=== PATIENT | female | born 1955 | race Caucasian/White ===

== ENCOUNTER 2021-03-12 15:09 | Outpatient (CLI) | payer MEDICARE, OTHER | END 2021-03-12 15:10 | disposition home or self-care (01) | LOC: NAV RAD 15:09 | PROVIDERS: ATTEND Family Medicine | DX: M25.461 Effusion, right knee (principal); M25.571 Pain in right ankle and joints of right foot; S82.61XA Displaced fracture of lateral malleolus of right fibula, initial encounter for closed fracture; S82.51XA Displaced fracture of medial malleolus of right tibia, initial encounter for closed fracture ==

== ENCOUNTER 2021-03-12 16:14 | Emergency (ER) | payer MEDICARE, OTHER | END 2021-03-12 17:05 | disposition home or self-care (01) | LOC: NAV ERS 16:14 | DX: S82.841A Displaced bimalleolar fracture of right lower leg, initial encounter for closed fracture (principal); I10 Essential (primary) hypertension; Z79.899 Other long term (current) drug therapy; Z79.82 Long term (current) use of aspirin; W19.XXXA Unspecified fall, initial encounter | CPT/HCPCS: 29515 ==

== ENCOUNTER 2022-01-28 09:22 | Inpatient (IN) | payer MEDICARE, OTHER ==
[2022-01-28] MEDS ORDERED: traMADol HCl 50 MG TAB PO PRN (17:38)
[2022-01-28] MEDS ORDERED: Polyethylene Glycol 3350 17 GM Packet PO PRN (17:38)
[2022-01-28] MEDS ORDERED: guaiFENesin ER 600 MG TAB PO PRN (17:38)
[2022-01-28] MEDS ORDERED: Benzonatate 100 MG CAP PO PRN (17:38)
[2022-01-28] MEDS ORDERED: Loperamide HCl 2 MG CAP PO PRN ×2 (17:46)
[2022-01-28] MEDS ORDERED: hydrOXYzine 25 MG TAB PO PRN (17:46)
[2022-01-28] MEDS ORDERED: Senokot S 8.6-50 MG TAB PO PRN (17:46)
[2022-01-28] MEDS ORDERED: Guaifenesin DM 100-10/5 ML UDCUP PO PRN (17:46)
[2022-01-28] MEDS ORDERED: Ondansetron PF 4 MG/2 ML Vial IVP PRN (17:46)
[2022-01-28] MEDS ORDERED: Bisacodyl 5 MG TAB PO PRN (17:46)
[2022-01-28] MEDS ORDERED: Bisacodyl 10 MG SUPP PR PRN (17:46)
[2022-01-28] MEDS ORDERED: Artificial Tear Sol 15 ML BOT EA EYE PRN (17:46)
[2022-01-28] MEDS ORDERED: Acetaminophen 650 MG Suppository PR PRN (17:46)
[2022-01-28] MEDS ORDERED: Promethazine HCl 25 MG SUPP PR PRN (17:46)
[2022-01-28] MEDS ORDERED: Ondansetron ODT 4 MG TAB PO PRN (17:46)
[2022-01-28] MEDS ORDERED: Acetaminophen 325 MG TAB PO PRN (17:46)
[2022-01-28] MEDS ORDERED: Cepastat Lozenges 1 LOZ PO PRN (17:46)
[2022-01-28 20:37] LABS: SARS-CoV-2 NAA Rapid Test Not Detected (NotDetected)
[2022-01-28] MEDS: Bupropion 150 MG XL TAB PO SCH (20:47)
[2022-01-28] MEDS: Baclofen 10 MG TAB PO SCH (20:47)
[2022-01-28] MEDS: Atorvastatin Calcium 40 MG TAB PO SCH (20:48)
[2022-01-28] MEDS: Montelukast Sodium 10 mg Tablet PO SCH (20:48)
[2022-01-28] MEDS: Escitalopram Oxalate 20 mg Tablet PO SCH (20:54)
[2022-01-28] MEDS: Ventolin HFA Inhaler 60 PUFF INHALER INH SCH (21:25)
[2022-01-29 06:11] LABS: #Basophils 0.1 thou/uL (0.0-0.2); #Eosinphils 0.2 thou/uL (0.0-0.7); #Lymphocytes 3.3 thou/uL (1.20-3.40); #Monocytes 0.9 thou/uL (0.11-0.59); #Neutrophils 5.5 thou/uL (1.40-6.50); %Basophils 0.6 % (0.0-1.0); %Eosinophils 2.1 % (0.0-10.0); %Lymphocytes 33.2 % (21.0-51.0); %Monocytes 8.9 % (0.0-10.0); %Neutrophils 55.2 % (42.0-75.0); Hemoglobin 10.5 g/dL (12.0-16.0); Mean Corpuscular HGB CONC 31.5 g/dL (32.0-36.0); Mean Corpuscular Hemoglobin 31.4 pg (27.0-31.0); Mean Corpuscular Volume 99.8 fL (78.0-98.0); Mean Platelet Volume 9.2 fL (7.4-10.4); Platelet Count 193 thou/uL (130-400); RBC Distribution Width 12.1 % (11.5-14.5); Red Blood Cell (RBC) Count 3.35 mill/uL (4.20-5.40)
[2022-01-29 06:17] LABS: ALT (SGPT) 161 U/L (8-55); AST (SGOT) 155 U/L (5-34); Albumin 3.3 g/dL (3.4-4.8); Alkaline Phosphatase 105 U/L (40-110); Anion Gap 13 mmol/L (10-20); BUN (Urea Nitrogen) 20 mg/dL (9.8-20.1); Bilirubin, Total 0.4 mg/dL (0.2-1.2); Calc. Creatinine Clearance 57 mL/min (70-130); Calcium 8.8 mg/dL (7.8-10.44); Carbon Dioxide 24 mmol/L (23-31); Chloride 108 mmol/L (98-107); Globulin 3.3 g/dL (2.4-3.5); Glucose 84 mg/dL (80-115); Potassium 4.2 mmol/L (3.5-5.1); Protein, Total 6.6 g/dL (5.8-8.1); Sodium 141 mmol/L (136-145)
[2022-01-29] MEDS ORDERED: Ventolin HFA Inhaler 60 PUFF INHALER ONE (08:30)
[2022-01-29] MEDS: Baclofen 10 MG TAB PO SCH ×3 (08:37→20:10)
[2022-01-29] MEDS: Loratadine 10 MG TAB PO SCH (08:38)
[2022-01-29] MEDS: Sodium Chloride 0.65% Nasal 44 ML BOT EA NARE PRN ×2 (08:40→20:18)
[2022-01-29] MEDS: Ventolin HFA Inhaler 60 PUFF INHALER INH SCH ×2 (08:50→20:12)
[2022-01-29] MEDS ORDERED: Non-Formulary Item 1 EACH (Rabeprazole Sodium [Rabeprazole Sodium] 20 MG Tablet.Dr) PO SCH (09:00)
[2022-01-29] MEDS ORDERED: CETIRIZINE HCL 10 MG PO SCH (09:00)
[2022-01-29] MEDS: Montelukast Sodium 10 mg Tablet PO SCH (20:09)
[2022-01-29] MEDS: Escitalopram Oxalate 20 mg Tablet PO SCH (20:10)
[2022-01-29] MEDS: Bupropion 150 MG XL TAB PO SCH (20:10)
[2022-01-29] MEDS: Atorvastatin Calcium 40 MG TAB PO SCH (20:11)
[2022-01-30] MEDS ORDERED: Acetaminophen 650 MG Suppository PR PRN (07:02)
[2022-01-30] MEDS: Loratadine 10 MG TAB PO SCH (09:24)
[2022-01-30] MEDS: Polyethylene Glycol 3350 17 GM Packet PO SCH (09:24)
[2022-01-30] MEDS: Baclofen 10 MG TAB PO SCH ×3 (09:24→20:04)
[2022-01-30] MEDS: Ondansetron ODT 4 MG TAB SL SCH ×2 (09:25→20:05)
[2022-01-30] MEDS: Sodium Chloride 0.65% Nasal 44 ML BOT EA NARE PRN ×2 (09:25→20:05)
[2022-01-30] MEDS: Ventolin HFA Inhaler 60 PUFF INHALER INH SCH ×2 (09:25→20:06)
[2022-01-30] MEDS: Acetaminophen 325 MG TAB PO PRN (14:10)
[2022-01-30] MEDS: traMADol HCl 50 MG TAB PO PRN (15:44)
[2022-01-30] MEDS: Escitalopram Oxalate 20 mg Tablet PO SCH (20:04)
[2022-01-30] MEDS: Bupropion 150 MG XL TAB PO SCH (20:04)
[2022-01-30] MEDS: Atorvastatin Calcium 40 MG TAB PO SCH (20:04)
[2022-01-30] MEDS: Montelukast Sodium 10 mg Tablet PO SCH (20:05)
[2022-01-31] MEDS: traMADol HCl 50 MG TAB PO PRN ×2 (00:52→14:46)
[2022-01-31] MEDS: Loratadine 10 MG TAB PO SCH (08:11)
[2022-01-31] MEDS: Ondansetron ODT 4 MG TAB SL SCH ×2 (08:11→20:36)
[2022-01-31] MEDS: Ventolin HFA Inhaler 60 PUFF INHALER INH SCH ×2 (08:12→20:36)
[2022-01-31] MEDS: Polyethylene Glycol 3350 17 GM Packet PO SCH (08:12)
[2022-01-31] MEDS: Baclofen 10 MG TAB PO SCH ×3 (08:12→20:36)
[2022-01-31] MEDS: Acetaminophen 325 MG TAB PO PRN ×2 (08:13→20:28)
[2022-01-31] MEDS: Sodium Chloride 0.65% Nasal 44 ML BOT EA NARE PRN ×2 (08:28→20:35)
[2022-01-31 17:25] LABS: HBSAg Index 0.14 S/CO (0-0.99); Hep B Core Total Ab Non-Reactive (NonReactive); Hep B Core Total Index 0.13 S/CO (0-0.79); Hep B Surf Ag Non-Reactive S/CO (NonReactive); Hep C IgG Ab Non-Reactive (NonReactive)
[2022-01-31 17:29] LABS: HBSAB Concentration 165.22 mIU/mL; Hep B Surf AB Reactive (NonReactive)
[2022-01-31] MEDS: Bupropion 150 MG XL TAB PO SCH (20:35)
[2022-01-31] MEDS: Montelukast Sodium 10 mg Tablet PO SCH (20:36)
[2022-01-31] MEDS: Escitalopram Oxalate 20 mg Tablet PO SCH (20:36)
[2022-01-31] MEDS: Atorvastatin Calcium 40 MG TAB PO SCH (20:36)
[2022-02-01] MEDS: traMADol HCl 50 MG TAB PO PRN ×3 (01:47→20:51)
[2022-02-01] MEDS: Acetaminophen 325 MG TAB PO PRN ×2 (03:29→16:12)
[2022-02-01] MEDS: Polyethylene Glycol 3350 17 GM Packet PO SCH (07:50)
[2022-02-01] MEDS: Baclofen 10 MG TAB PO SCH ×3 (07:51→20:52)
[2022-02-01] MEDS: Loratadine 10 MG TAB PO SCH (07:52)
[2022-02-01] MEDS: Ondansetron ODT 4 MG TAB SL SCH ×2 (07:52→20:53)
[2022-02-01] MEDS: Ventolin HFA Inhaler 60 PUFF INHALER INH SCH ×2 (08:41→20:54)
[2022-02-01] MEDS: Sodium Chloride 0.65% Nasal 44 ML BOT EA NARE PRN ×2 (08:42→20:53)
[2022-02-01] MEDS: Atorvastatin Calcium 40 MG TAB PO SCH (20:52)
[2022-02-01] MEDS: Bupropion 150 MG XL TAB PO SCH (20:52)
[2022-02-01] MEDS: Escitalopram Oxalate 20 mg Tablet PO SCH (20:53)
[2022-02-01] MEDS: Montelukast Sodium 10 mg Tablet PO SCH (20:53)
[2022-02-02] MEDS: traMADol HCl 50 MG TAB PO PRN ×3 (03:53→20:20)
[2022-02-02] MEDS: Baclofen 10 MG TAB PO SCH ×3 (08:17→20:19)
[2022-02-02] MEDS: Ondansetron ODT 4 MG TAB SL SCH ×2 (08:17→20:20)
[2022-02-02] MEDS: Loratadine 10 MG TAB PO SCH (08:17)
[2022-02-02] MEDS: Ventolin HFA Inhaler 60 PUFF INHALER INH SCH ×2 (08:18→20:21)
[2022-02-02] MEDS: Polyethylene Glycol 3350 17 GM Packet PO SCH (08:19)
[2022-02-02 12:03] LABS: ALT (SGPT) 182 U/L (8-55); AST (SGOT) 152 U/L (5-34); Albumin 4.1 g/dL (3.4-4.8); Alkaline Phosphatase 133 U/L (40-110); Anion Gap 18 mmol/L (10-20); BUN (Urea Nitrogen) 22 mg/dL (9.8-20.1); Bilirubin, Total 0.4 mg/dL (0.2-1.2); Calc. Creatinine Clearance 50 mL/min (70-130); Calcium 9.8 mg/dL (7.8-10.44); Carbon Dioxide 25 mmol/L (23-31); Chloride 103 mmol/L (98-107); Globulin 4.2 g/dL (2.4-3.5); Glucose 91 mg/dL (80-115); Protein, Total 8.3 g/dL (5.8-8.1); Sodium 142 mmol/L (136-145)
[2022-02-02] MEDS: Acetaminophen 325 MG TAB PO PRN (15:06)
[2022-02-02] MEDS: Atorvastatin Calcium 40 MG TAB PO SCH (20:20)
[2022-02-02] MEDS: Montelukast Sodium 10 mg Tablet PO SCH (20:20)
[2022-02-02] MEDS: Bupropion 150 MG XL TAB PO SCH (20:20)
[2022-02-02] MEDS: Escitalopram Oxalate 20 mg Tablet PO SCH (20:20)
[2022-02-02] MEDS: Sodium Chloride 0.65% Nasal 44 ML BOT EA NARE PRN (20:21)
[2022-02-03] MEDS: traMADol HCl 50 MG TAB PO PRN ×3 (05:17→18:12)
[2022-02-03] MEDS: Ondansetron ODT 4 MG TAB SL SCH ×2 (07:50→20:50)
[2022-02-03] MEDS: Ventolin HFA Inhaler 60 PUFF INHALER INH SCH ×2 (09:10→20:51)
[2022-02-03] MEDS: Baclofen 10 MG TAB PO SCH ×3 (09:11→20:51)
[2022-02-03] MEDS: Loratadine 10 MG TAB PO SCH (09:11)
[2022-02-03] MEDS: Polyethylene Glycol 3350 17 GM Packet PO SCH (09:19)
[2022-02-03] MEDS: Calcium Carbonate 500 MG ChewTAB PO PRN (19:59)
[2022-02-03] MEDS: Escitalopram Oxalate 20 mg Tablet PO SCH (20:50)
[2022-02-03] MEDS: Bupropion 150 MG XL TAB PO SCH (20:50)
[2022-02-03] MEDS: Montelukast Sodium 10 mg Tablet PO SCH (20:51)
[2022-02-03] MEDS: Atorvastatin Calcium 40 MG TAB PO SCH (20:51)
[2022-02-04] MEDS: Acetaminophen 325 MG TAB PO PRN ×3 (00:19→22:36)
[2022-02-04] MEDS: Ondansetron ODT 4 MG TAB SL SCH ×2 (08:07→20:54)
[2022-02-04] MEDS: Loratadine 10 MG TAB PO SCH (08:08)
[2022-02-04] MEDS: Baclofen 10 MG TAB PO SCH ×3 (08:08→20:55)
[2022-02-04] MEDS: Polyethylene Glycol 3350 17 GM Packet PO SCH (08:09)
[2022-02-04] MEDS: traMADol HCl 50 MG TAB PO PRN ×2 (08:09→17:19)
[2022-02-04] MEDS: Ventolin HFA Inhaler 60 PUFF INHALER INH SCH ×2 (08:11→20:55)
[2022-02-04] MEDS: Sodium Chloride 0.65% Nasal 44 ML BOT EA NARE PRN ×2 (08:18→20:55)
[2022-02-04 15:30] LABS: SARS-CoV-2 PCR by NAA Not Detected (NotDetected)
[2022-02-04] MEDS ORDERED: Ondansetron ODT 4 MG TAB SL SCH (19:00)
[2022-02-04] MEDS: Calcium Carbonate 500 MG ChewTAB PO PRN (19:07)
[2022-02-04] MEDS: Escitalopram Oxalate 20 mg Tablet PO SCH (20:54)
[2022-02-04] MEDS: Bupropion 150 MG XL TAB PO SCH (20:54)
[2022-02-04] MEDS: Atorvastatin Calcium 40 MG TAB PO SCH (20:54)
[2022-02-04] MEDS: Montelukast Sodium 10 mg Tablet PO SCH (20:54)
[2022-02-05] MEDS: traMADol HCl 50 MG TAB PO PRN ×3 (02:44→23:59)
[2022-02-05] MEDS ORDERED: Acetaminophen 325 MG TAB PO PRN (07:12)
[2022-02-05] MEDS ORDERED: Acetaminophen 650 MG Suppository PR PRN (07:12)
[2022-02-05] MEDS: Calcium Carbonate 500 MG ChewTAB PO PRN ×2 (08:03→17:59)
[2022-02-05] MEDS: Ondansetron ODT 4 MG TAB SL SCH ×3 (08:03→21:04)
[2022-02-05] MEDS: Polyethylene Glycol 3350 17 GM Packet PO SCH (08:04)
[2022-02-05] MEDS: Fluticasone Propionate Nasal Spray 16 gm Bottle NASAL SCH (08:04)
[2022-02-05] MEDS: Baclofen 10 MG TAB PO SCH ×3 (08:04→21:04)
[2022-02-05] MEDS: Loratadine 10 MG TAB PO SCH (08:04)
[2022-02-05] MEDS: Ventolin HFA Inhaler 60 PUFF INHALER INH SCH ×2 (08:06→21:08)
[2022-02-05] MEDS: Acetaminophen 325 MG TAB PO PRN ×2 (12:09→23:59)
[2022-02-05] MEDS: Montelukast Sodium 10 mg Tablet PO SCH (21:05)
[2022-02-05] MEDS: Escitalopram Oxalate 20 mg Tablet PO SCH (21:05)
[2022-02-05] MEDS: Bupropion 150 MG XL TAB PO SCH (21:05)
[2022-02-05] MEDS: Atorvastatin Calcium 40 MG TAB PO SCH (21:05)
[2022-02-06] MEDS: Polyethylene Glycol 3350 17 GM Packet PO SCH (07:53)
[2022-02-06] MEDS: Albuterol 200 PUFF (6.7GM INHALER) INH PRN (07:53)
[2022-02-06] MEDS: Sodium Chloride 0.65% Nasal 44 ML BOT EA NARE PRN (07:53)
[2022-02-06] MEDS: traMADol HCl 50 MG TAB PO PRN ×2 (07:54→21:48)
[2022-02-06] MEDS: Calcium Carbonate 500 MG ChewTAB PO PRN ×2 (07:54→13:01)
[2022-02-06] MEDS: Ventolin HFA Inhaler 60 PUFF INHALER INH SCH ×2 (07:56→20:32)
[2022-02-06] MEDS: Ondansetron ODT 4 MG TAB SL SCH ×3 (07:56→20:32)
[2022-02-06] MEDS: Baclofen 10 MG TAB PO SCH ×3 (07:57→20:31)
[2022-02-06] MEDS: Loratadine 10 MG TAB PO SCH (07:57)
[2022-02-06] MEDS: Acetaminophen 325 MG TAB PO PRN ×2 (08:05→21:49)
[2022-02-06] MEDS: Fluticasone Propionate Nasal Spray 16 gm Bottle NASAL SCH (08:05)
[2022-02-06] MEDS: Bupropion 150 MG XL TAB PO SCH (20:31)
[2022-02-06] MEDS: Escitalopram Oxalate 20 mg Tablet PO SCH (20:32)
[2022-02-06] MEDS: Montelukast Sodium 10 mg Tablet PO SCH (20:32)
[2022-02-07 06:27] LABS: #Basophils 0.1 thou/uL (0.0-0.2); #Eosinphils 0.2 thou/uL (0.0-0.7); #Lymphocytes 3.4 thou/uL (1.20-3.40); #Monocytes 0.8 thou/uL (0.11-0.59); #Neutrophils 2.5 thou/uL (1.40-6.50); %Basophils 1.4 % (0.0-1.0); %Eosinophils 2.8 % (0.0-10.0); %Lymphocytes 48.6 % (21.0-51.0); %Monocytes 11.4 % (0.0-10.0); %Neutrophils 35.8 % (42.0-75.0); Hemoglobin 11.8 g/dL (12.0-16.0); Mean Corpuscular HGB CONC 30.7 g/dL (32.0-36.0); Mean Platelet Volume 9.4 fL (7.4-10.4); Platelet Count 215 thou/uL (130-400); White Blood Cell (WBC) Count 6.9 thou/uL (4.8-10.8)
[2022-02-07 06:43] LABS: ALT (SGPT) 163 U/L (8-55); AST (SGOT) 136 U/L (5-34); Albumin 3.8 g/dL (3.4-4.8); Alkaline Phosphatase 108 U/L (40-110); Anion Gap 14 mmol/L (10-20); BUN (Urea Nitrogen) 26 mg/dL (9.8-20.1); Bilirubin, Total 0.4 mg/dL (0.2-1.2); Calc. Creatinine Clearance 52 mL/min (70-130); Calcium 9.7 mg/dL (7.8-10.44); Carbon Dioxide 29 mmol/L (23-31); Chloride 101 mmol/L (98-107); Globulin 3.9 g/dL (2.4-3.5); Glucose 82 mg/dL (80-115); Potassium 3.7 mmol/L (3.5-5.1); Protein, Total 7.7 g/dL (5.8-8.1); Sodium 140 mmol/L (136-145)
[2022-02-07] MEDS: Ondansetron ODT 4 MG TAB SL SCH ×3 (09:29→20:17)
[2022-02-07] MEDS: Calcium Carbonate 500 MG ChewTAB PO PRN ×2 (09:31→15:06)
[2022-02-07] MEDS: Acetaminophen 325 MG TAB PO PRN ×2 (10:01→20:58)
[2022-02-07] MEDS: Polyethylene Glycol 3350 17 GM Packet PO SCH (10:02)
[2022-02-07] MEDS: Fluticasone Propionate Nasal Spray 16 gm Bottle NASAL SCH (10:03)
[2022-02-07] MEDS: Albuterol 200 PUFF (6.7GM INHALER) INH PRN ×2 (10:03→10:07)
[2022-02-07] MEDS: Baclofen 10 MG TAB PO SCH ×3 (10:03→20:17)
[2022-02-07] MEDS: Loratadine 10 MG TAB PO SCH (10:03)
[2022-02-07] MEDS: traMADol HCl 50 MG TAB PO PRN ×2 (10:04→20:58)
[2022-02-07] MEDS: Ventolin HFA Inhaler 60 PUFF INHALER INH SCH ×2 (10:08→20:16)
[2022-02-07] MEDS: Montelukast Sodium 10 mg Tablet PO SCH (20:17)
[2022-02-07] MEDS: Bupropion 150 MG XL TAB PO SCH (20:17)
[2022-02-07] MEDS: Escitalopram Oxalate 20 mg Tablet PO SCH (20:17)
[2022-02-08] MEDS: traMADol HCl 50 MG TAB PO PRN ×2 (09:09→17:00)
[2022-02-08] MEDS: Acetaminophen 325 MG TAB PO PRN ×2 (09:10→17:04)
[2022-02-08] MEDS: Ondansetron ODT 4 MG TAB SL SCH ×3 (09:13→20:47)
[2022-02-08] MEDS: Baclofen 10 MG TAB PO SCH ×3 (09:14→20:45)
[2022-02-08] MEDS: Loratadine 10 MG TAB PO SCH (09:15)
[2022-02-08] MEDS: Polyethylene Glycol 3350 17 GM Packet PO SCH (09:16)
[2022-02-08] MEDS: Albuterol 200 PUFF (6.7GM INHALER) INH PRN ×2 (09:16→20:47)
[2022-02-08] MEDS: Fluticasone Propionate Nasal Spray 16 gm Bottle NASAL SCH (09:17)
[2022-02-08] MEDS: Calcium Carbonate 500 MG ChewTAB PO PRN ×2 (09:28→23:53)
[2022-02-08] MEDS: Ventolin HFA Inhaler 60 PUFF INHALER INH SCH ×2 (09:39→20:54)
[2022-02-08] MEDS: Bupropion 150 MG XL TAB PO SCH (20:46)
[2022-02-08] MEDS: Montelukast Sodium 10 mg Tablet PO SCH (20:46)
[2022-02-08] MEDS: Escitalopram Oxalate 20 mg Tablet PO SCH (20:46)
[2022-02-09] MEDS: Acetaminophen 325 MG TAB PO PRN ×3 (01:50→21:11)
[2022-02-09] MEDS: traMADol HCl 50 MG TAB PO PRN ×3 (01:50→21:12)
[2022-02-09] MEDS: Calcium Carbonate 500 MG ChewTAB PO PRN (04:47)
[2022-02-09 05:59] LABS: #Basophils 0.1 thou/uL (0.0-0.2); #Eosinphils 0.2 thou/uL (0.0-0.7); #Lymphocytes 2.7 thou/uL (1.20-3.40); #Monocytes 0.9 thou/uL (0.11-0.59); #Neutrophils 3.4 thou/uL (1.40-6.50); %Basophils 1.1 % (0.0-1.0); %Eosinophils 3.1 % (0.0-10.0); %Lymphocytes 36.9 % (21.0-51.0); %Monocytes 12.1 % (0.0-10.0); %Neutrophils 46.7 % (42.0-75.0); Hemoglobin 11.4 g/dL (12.0-16.0); Mean Corpuscular HGB CONC 30.6 g/dL (32.0-36.0); Mean Corpuscular Hemoglobin 30.8 pg (27.0-31.0); Mean Platelet Volume 8.9 fL (7.4-10.4); Platelet Count 195 thou/uL (130-400); RBC Distribution Width 11.7 % (11.5-14.5); White Blood Cell (WBC) Count 7.3 thou/uL (4.8-10.8)
[2022-02-09 06:12] LABS: ALT (SGPT) 137 U/L (8-55); AST (SGOT) 107 U/L (5-34); Albumin 3.5 g/dL (3.4-4.8); Alkaline Phosphatase 94 U/L (40-110); Anion Gap 17 mmol/L (10-20); BUN (Urea Nitrogen) 25 mg/dL (9.8-20.1); Bilirubin, Total 0.4 mg/dL (0.2-1.2); Calc. Creatinine Clearance 53 mL/min (70-130); Calcium 9.8 mg/dL (7.8-10.44); Carbon Dioxide 25 mmol/L (23-31); Chloride 105 mmol/L (98-107); Globulin 3.6 g/dL (2.4-3.5); Glucose 86 mg/dL (80-115); Potassium 4.5 mmol/L (3.5-5.1); Protein, Total 7.1 g/dL (5.8-8.1); Sodium 142 mmol/L (136-145)
[2022-02-09] MEDS: Fluticasone Propionate Nasal Spray 16 gm Bottle NASAL SCH (08:45)
[2022-02-09] MEDS: Polyethylene Glycol 3350 17 GM Packet PO SCH (08:45)
[2022-02-09] MEDS: Baclofen 10 MG TAB PO SCH ×3 (08:46→21:14)
[2022-02-09] MEDS: Ondansetron ODT 4 MG TAB SL SCH ×3 (08:46→21:14)
[2022-02-09] MEDS: Loratadine 10 MG TAB PO SCH (08:46)
[2022-02-09] MEDS: Ventolin HFA Inhaler 60 PUFF INHALER INH SCH ×2 (08:47→21:13)
[2022-02-09] MEDS: Montelukast Sodium 10 mg Tablet PO SCH (21:14)
[2022-02-09] MEDS: Escitalopram Oxalate 20 mg Tablet PO SCH (21:14)
[2022-02-09] MEDS: Bupropion 150 MG XL TAB PO SCH (21:14)
[2022-02-10] MEDS: Acetaminophen 325 MG TAB PO PRN ×2 (03:01→19:16)
[2022-02-10] MEDS: Baclofen 10 MG TAB PO SCH ×3 (08:26→20:42)
[2022-02-10] MEDS: Polyethylene Glycol 3350 17 GM Packet PO SCH (08:26)
[2022-02-10] MEDS: Ondansetron ODT 4 MG TAB SL SCH ×3 (08:26→20:42)
[2022-02-10] MEDS: Loratadine 10 MG TAB PO SCH (08:26)
[2022-02-10] MEDS: Fluticasone Propionate Nasal Spray 16 gm Bottle NASAL SCH (08:26)
[2022-02-10] MEDS: Ventolin HFA Inhaler 60 PUFF INHALER INH SCH ×2 (08:27→20:43)
[2022-02-10 13:23] VITALS: BMI 23.5
[2022-02-10] MEDS: traMADol HCl 50 MG TAB PO PRN (19:17)
[2022-02-10] MEDS: Escitalopram Oxalate 20 mg Tablet PO SCH (20:42)
[2022-02-10] MEDS: Bupropion 150 MG XL TAB PO SCH (20:42)
[2022-02-10] MEDS: Montelukast Sodium 10 mg Tablet PO SCH (20:42)
[2022-02-11 06:38] LABS: ALT (SGPT) 131 U/L (8-55); AST (SGOT) 97 U/L (5-34); Albumin 3.6 g/dL (3.4-4.8); Alkaline Phosphatase 94 U/L (40-110); Anion Gap 16 mmol/L (10-20); BUN (Urea Nitrogen) 21 mg/dL (9.8-20.1); Bilirubin, Total 0.4 mg/dL (0.2-1.2); Calc. Creatinine Clearance 49 mL/min (70-130); Calcium 9.2 mg/dL (7.8-10.44); Carbon Dioxide 26 mmol/L (23-31); Chloride 104 mmol/L (98-107); Globulin 3.5 g/dL (2.4-3.5); Glucose 82 mg/dL (80-115); Potassium 3.6 mmol/L (3.5-5.1); Protein, Total 7.1 g/dL (5.8-8.1); Sodium 142 mmol/L (136-145)
[2022-02-11 06:42] LABS: #Basophils 0.1 thou/uL (0.0-0.2); #Eosinphils 0.5 thou/uL (0.0-0.7); #Lymphocytes 2.4 thou/uL (1.20-3.40); #Monocytes 0.6 thou/uL (0.11-0.59); %Basophils 1.1 % (0.0-1.0); %Eosinophils 6.8 % (0.0-10.0); %Lymphocytes 36.6 % (21.0-51.0); %Monocytes 9.7 % (0.0-10.0); %Neutrophils 45.7 % (42.0-75.0); Hemoglobin 11.2 g/dL (12.0-16.0); Mean Corpuscular HGB CONC 29.9 g/dL (32.0-36.0); Mean Corpuscular Hemoglobin 30.7 pg (27.0-31.0); Mean Platelet Volume 8.1 fL (7.4-10.4); Platelet Count 217 thou/uL (130-400); RBC Distribution Width 12.2 % (11.5-14.5); Red Blood Cell (RBC) Count 3.66 mill/uL (4.20-5.40); White Blood Cell (WBC) Count 6.7 thou/uL (4.8-10.8)
[2022-02-11] MEDS: Fluticasone Propionate Nasal Spray 16 gm Bottle NASAL SCH (07:55)
[2022-02-11] MEDS: Ventolin HFA Inhaler 60 PUFF INHALER INH SCH ×2 (07:55→20:45)
[2022-02-11] MEDS: Ondansetron ODT 4 MG TAB SL SCH ×3 (07:56→20:46)
[2022-02-11] MEDS: Polyethylene Glycol 3350 17 GM Packet PO SCH (07:56)
[2022-02-11] MEDS: Loratadine 10 MG TAB PO SCH (07:56)
[2022-02-11] MEDS: Baclofen 10 MG TAB PO SCH ×3 (07:58→20:46)
[2022-02-11] MEDS: traMADol HCl 50 MG TAB PO PRN ×2 (10:04→21:55)
[2022-02-11] MEDS: Acetaminophen 325 MG TAB PO PRN ×2 (10:05→21:54)
[2022-02-11] MEDS: Calcium Carbonate 500 MG ChewTAB PO PRN (15:08)
[2022-02-11 15:42] LABS: SARS-CoV-2 PCR by NAA Not Detected (NotDetected)
[2022-02-11] MEDS: Bupropion 150 MG XL TAB PO SCH (20:46)
[2022-02-11] MEDS: Montelukast Sodium 10 mg Tablet PO SCH (20:46)
[2022-02-11] MEDS: Escitalopram Oxalate 20 mg Tablet PO SCH (20:46)
[2022-02-12] MEDS: Acetaminophen 325 MG TAB PO PRN ×3 (04:46→17:07)
[2022-02-12] MEDS: traMADol HCl 50 MG TAB PO PRN ×2 (07:52→17:05)
[2022-02-12] MEDS: Polyethylene Glycol 3350 17 GM Packet PO SCH (08:48)
[2022-02-12] MEDS: Ondansetron ODT 4 MG TAB SL SCH ×3 (08:48→20:16)
[2022-02-12] MEDS: Ventolin HFA Inhaler 60 PUFF INHALER INH SCH ×2 (08:52→20:18)
[2022-02-12] MEDS: Fluticasone Propionate Nasal Spray 16 gm Bottle NASAL SCH (08:52)
[2022-02-12] MEDS: Albuterol 200 PUFF (6.7GM INHALER) INH PRN (08:53)
[2022-02-12] MEDS: Loratadine 10 MG TAB PO SCH (08:53)
[2022-02-12] MEDS: Baclofen 10 MG TAB PO SCH ×3 (08:54→20:16)
[2022-02-12] MEDS: Montelukast Sodium 10 mg Tablet PO SCH (20:16)
[2022-02-12] MEDS: Bupropion 150 MG XL TAB PO SCH (20:16)
[2022-02-12] MEDS: Escitalopram Oxalate 20 mg Tablet PO SCH (20:17)
[2022-02-13] MEDS: traMADol HCl 50 MG TAB PO PRN ×2 (01:12→09:10)
[2022-02-13] MEDS: Acetaminophen 325 MG TAB PO PRN ×2 (01:15→09:08)
[2022-02-13] MEDS: Calcium Carbonate 500 MG ChewTAB PO PRN (06:33)
[2022-02-13 06:35] LABS: #Basophils 0.1 thou/uL (0.0-0.2); #Eosinphils 0.5 thou/uL (0.0-0.7); #Lymphocytes 3.1 thou/uL (1.20-3.40); #Monocytes 0.8 thou/uL (0.11-0.59); #Neutrophils 2.8 thou/uL (1.40-6.50); %Basophils 1.4 % (0.0-1.0); %Eosinophils 7.4 % (0.0-10.0); %Lymphocytes 41.6 % (21.0-51.0); %Monocytes 11.2 % (0.0-10.0); %Neutrophils 38.4 % (42.0-75.0); Hemoglobin 10.9 g/dL (12.0-16.0); Mean Corpuscular HGB CONC 30.3 g/dL (32.0-36.0); Mean Corpuscular Hemoglobin 30.5 pg (27.0-31.0); Mean Platelet Volume 8.9 fL (7.4-10.4); Platelet Count 204 thou/uL (130-400); RBC Distribution Width 11.7 % (11.5-14.5); Red Blood Cell (RBC) Count 3.58 mill/uL (4.20-5.40); White Blood Cell (WBC) Count 7.3 thou/uL (4.8-10.8)
[2022-02-13 06:44] LABS: ALT (SGPT) 115 U/L (8-55); AST (SGOT) 79 U/L (5-34); Albumin 3.5 g/dL (3.4-4.8); Alkaline Phosphatase 86 U/L (40-110); Anion Gap 16 mmol/L (10-20); BUN (Urea Nitrogen) 26 mg/dL (9.8-20.1); Bilirubin, Total 0.4 mg/dL (0.2-1.2); Calc. Creatinine Clearance 56 mL/min (70-130); Carbon Dioxide 25 mmol/L (23-31); Chloride 104 mmol/L (98-107); Globulin 3.3 g/dL (2.4-3.5); Glucose 84 mg/dL (80-115); Potassium 3.5 mmol/L (3.5-5.1); Protein, Total 6.8 g/dL (5.8-8.1); Sodium 141 mmol/L (136-145)
[2022-02-13] MEDS: Loratadine 10 MG TAB PO SCH (09:06)
[2022-02-13] MEDS: Ondansetron ODT 4 MG TAB SL SCH (09:06)
[2022-02-13] MEDS: Baclofen 10 MG TAB PO SCH ×2 (09:06→11:12)
[2022-02-13] MEDS: Polyethylene Glycol 3350 17 GM Packet PO SCH (09:06)
[2022-02-13] MEDS: Fluticasone Propionate Nasal Spray 16 gm Bottle NASAL SCH (09:11)
[2022-02-13] MEDS: Ventolin HFA Inhaler 60 PUFF INHALER INH SCH (09:12)
[2022-02-13 13:37] VITALS: BP 121/68; TEMP 98.6
== END 2022-02-13 14:22 | disposition home or self-care (01) | DRG 57 ==
LOC: EDBD → NAV ACUTE 16:04
PROVIDERS: ADMIT Family Medicine; ATTEND Family Medicine
DX: I69.351 Hemiplegia and hemiparesis following cerebral infarction affecting right dominant side (principal); F33.0 Major depressive disorder, recurrent, mild; Z99.3 Dependence on wheelchair; I69.391 Dysphagia following cerebral infarction; I69.322 Dysarthria following cerebral infarction; R13.10 Dysphagia, unspecified; Z20.822 Contact with and (suspected) exposure to COVID-19; F41.9 Anxiety disorder, unspecified; M24.541 Contracture, right hand; G43.009 Migraine without aura, not intractable, without status migrainosus; K21.9 Gastro-esophageal reflux disease without esophagitis; R74.01 Elevation of levels of liver transaminase levels; J45.909 Unspecified asthma, uncomplicated; K76.0 Fatty (change of) liver, not elsewhere classified; I10 Essential (primary) hypertension; M62.838 Other muscle spasm; Z98.51 Tubal ligation status; Z91.018 Allergy to other foods; Z79.899 Other long term (current) drug therapy; Z98.49 Cataract extraction status, unspecified eye; Z98.84 Bariatric surgery status; S82.841S Displaced bimalleolar fracture of right lower leg, sequela; S42.201S Unspecified fracture of upper end of right humerus, sequela
CPT/HCPCS: 36415; 80053; 85025; 86704; 86706; 86803; 87340; 90471; 90732; 94664; G0009; J2405; Q0162; U0003; U0005